=== PATIENT | male | born 1950 | race Caucasian/White ===

== ENCOUNTER 2022-05-31 17:56 | Emergency (ER) | payer MEDICARE ==
[~2022-05-31] VITALS: Ht 182.9 cm; Wt 111.9 kg
[2022-05-31] MEDS ORDERED: MORPHINE 10 MG/ML 1ML VIAL As Ordered ONE (18:32)
[2022-05-31] MEDS ORDERED: ONDANSETRON 4MG 2ML VIAL As Ordered ONE (18:33)
[2022-05-31] MEDS ORDERED: ONDANSETRON 4MG 2ML VIAL IM PRN (18:35)
[2022-05-31] MEDS ORDERED: MORPHINE 10 MG/ML 1ML VIAL IM ONE (18:35)
[2022-05-31] MEDS ORDERED: LIDOCAINE 2% MDV 20ML VIAL SC ONE (20:00)
[2022-05-31] MEDS ORDERED: NEOSPORIN TOP OINT 15GM TOP STA (20:55)
[2022-05-31] MEDS ORDERED: BOOSTRIX/ADACEL VACCINE (DIPHTH/PERTUSS/ACELL/TETANUS) 0.5ML SYR IM ONE (20:55)
[2022-05-31] MEDS ORDERED: AMOX875T2 PO (21:11)
[2022-05-31 21:20] VITALS: BP 154/93
== END 2022-05-31 21:23 | disposition home or self-care (01) ==
LOC: M ED 17:56
DX: S61.215A Laceration without foreign body of left ring finger without damage to nail, initial encounter (principal); W01.0XXA Fall on same level from slipping, tripping and stumbling without subsequent striking against object, initial encounter; Y92.018 Other place in single-family (private) house as the place of occurrence of the external cause; Z88.8 Allergy status to other drugs, medicaments and biological substances
CPT/HCPCS: 12002; 73130; 90471; 90715; 96372; 99284; J2270